=== PATIENT | male | born 1970 | race Caucasian/White ===

== ENCOUNTER 2016-09-18 02:48 | Observation (INO) | payer OTHER ==
[2016-09-18] VITALS (12 sets, daily range): BP systolic 108–138; BP diastolic 77–104; PULSE 97–114; RESP 19–26; O2SAT 95–98
[~2016-09-18] VITALS: Ht 177.8 cm; Wt 80.4 kg
[~2016-09-18 02:48] MED LIST: ASPI325T32 PO; BUPR150T12 PO; FURO40TA4 PO; HYDR-3938 PO; ISOS10TA2 PO; LORA-302 PO; METO25TA6 PO; NICO1PAT6 TD; OMEP20CA11 PO; OXYC1TAB24 PO; RIVA15TA PO; RIVA20TA PO; SERT50TA9 PO; TRIA1TAB3 PO
--- NOTE | 2016-09-18 03:13 | ED.REPORT ---
HPI-General Illness Date of Service Sep 18, 2016 ED Provider: Eris Cheek MD Patient is a 46 year old male with a history of chronic systolic heart failure, PE status post EKOS thrombolysis on Xarelto, hypertension, and polysubstance abuse who presents to the ED complaining of increased shortness of breath this evening. He is unable to clarify when exactly these symptoms began but states that he "feels like shit". Patient admits to a non-productive cough and states that his breathing is worse if he lays flat on his back. He reports associated chest pain, which is a dull pressure. He denies swelling of his legs. Patient also states that he developed diarrhea 2-3 days ago, with accompanying abdominal pain. He also admits to nausea, vomiting, and increased stomach noises. Patient states that he last used methamphetamine 2 days ago and that he is trying to quit. He admits to using marijuana daily. Patient is a difficult historian, girlfriend states this is at his baseline. Patient has a history of being noncompliant with medical care and leaving AMA. Nursing Notes Stated Complaint: DIFFICULTY BREATHING Chief Complaint: Respiratory Complaints Nursing Notes Reviewed: Yes Allergies: Coded Allergies: No Known Allergies (Verified Allergy, Unknown, 09/18/16) Scheduled Aspirin (Aspirin) 325 Mg Tablet 325 MG PO DAILY Bupropion ER (Bupropion ER) 150 Mg Tablet.er 150 MG PO BID Furosemide (Furosemide) 40 Mg Tablet 40 MG PO DAILY Hydralazine (Hydralazine) 10 Mg Tablet 10 MG PO BID Isosorbide DN (Isosorbide DN) 10 Mg Tablet 10 MG PO BID Metoprolol Tartrate (Metoprolol Tartrate) 25 Mg Tablet 25 MG PO BID Nicotine 21 mg/24 hr Patch (Nicotine 21 mg/24 hr Patch) 1 Each Patch.td24 1 PATCH TD DAILY Omeprazole (Omeprazole) 20 Mg Capsule.dr 20 MG PO DAILY Rivaroxaban (Xarelto) 15 Mg Tablet 15 MG PO BID Rivaroxaban (Xarelto) 20 Mg Tablet 20 MG PO DAILY Sertraline HCl (Sertraline) 50 Mg Tablet 50 MG PO DAILY Triamterene/HCTZ 37.5-25 mg (Triamterene/HCTZ 37.5-25 mg) 1 Each Tablet 1 TAB PO DAILY Scheduled PRN Lorazepam (Ativan) 0.5 Mg Tablet 0.5 MG PO TID PRN PRN For Anxiety oxyCODONE-Acetaminophen 5-325 mg (oxyCODONE-Acetaminophen 5-325 mg) 1 Each Tablet 1 TAB PO Q6H PRN PRN For Pain General Time Seen by MD: 03:13 Chief Complaint Breathing problem, Not feeling well Hx Obtained From: Patient Arrived By: Walk-in Sudden in Onset?: No Onset Occurred: Onset unknown Symptom Duration: Since onset Location: : Abdomen: Chest Quality: Painful, Pressure Severity: Current: Moderate Severity: Maximum: Moderate Recent Healthcare: No recent doctor visit, No recent hospitalization Similar Sx Previous: Yes Past Medical History Past Medical History Chronic systolic heart failure Hx PE w/ right heart strain, status post EKOS thrombolysis HTN GERD Anxiety Polysubstance abuse Hx leaving hospitalist service AMA suspected hx of GI bleed Past Surgical History Facial repair Hand surgery Smoking History Current Every Day Smoker Social History Alcohol Use: Denies alcohol use Drug Use: Meth, THC Other Social History: Good social support, Local resident Ambulatory Status Independent Review of Systems + not feeling well Full Review of Systems Respiratory: Reports: Non-productive cough, Shortness of breath Cardiovascular: Reports: Chest pain, Orthopnea, Denies: Edema GI: Reports: Abdominal pain, Diarrhea, Nausea, Vomiting Musculoskeletal: Denies: Extremity swelling Complete sys rev & neg: except as marked. Physical Exam Vital Signs Vital Signs Date Time Temp Pulse Resp B/P Pulse Ox O2 Delivery O2 Flow Rate FiO2 09/18/16 06:13 101 23 108/90 95 Nasal Cannula 1 09/18/16 05:23 101 23 121/89 97 Nasal Cannula 2 09/18/16 04:33 103 23 121/96 97 Nasal Cannula 2 09/18/16 03:42 101 25 116/84 98 Nasal Cannula 2 09/18/16 03:04 36.1 108 26 129/82 98 Room Air Initial VS: Reviewed Neurologic: Alert, Oriented, Nonfocal Psychiatric: Mood/affect normal, Behavior normal General/Constitutional: Awake, Alert, No acute distress Head / Eyes: Normocephalic, PERRL, No scleral icterus ENT: Airway patent, Mucous membranes moist Neck: Supple, Full range of motion, No JVD Respiratory / Chest: Breath sounds NL, Breath sounds = bilat, No respiratory distress, No rales, No rhonchi, No wheezing tachypneic Cardiovascular: Heart rate NL, Regular rhythm, Heart sounds NL, No murmurs Abdomen: Soft, Non-tender Bowel Sounds / Distention: Positive: Distention mild Upper Extremities Upper Extremity / MS: No swelling, No edema Lower Extremity / Pelvis / MS: No swelling, No edema Skin: Warm, Dry Rash / Lesion Notes: Skin changes consistent with either eczema or scabies. Patches on the contact areas of jeans and bilateral wrists. Interpretation & Diagnostics Interpretation & Diagnostics: Urine Drug Screen: Positive for methamphetamine, amphetamine, opiates, ecstasy, and marijuana. All else negative. Lab Results Interpretation Result Diagram: 09/18/16 0315 09/18/16 0315 Test 09/18/16 03:10 09/18/16 03:15 Hold Urine Received (Received) White Blood Count 8.5th/mm3 (3.8-10.1) Red Blood Count 5.81mil/mm3 (4.40-5.80) Hemoglobin 17.3g/dL (13.8-17.2) Hematocrit 51.6% (41.0-50.0) Mean Corpuscular Volume 88.8fL (81-100) Mean Corpuscular Hemoglobin 29.8pg (27.0-35.0) Mean Corpuscular Hemoglobin Concent 33.5% (32.0-37.0) Red Cell Distribution Width 13.7% (12.3-15.4) Platelet Count 193bil/L (150-400) Neutrophils (%) (Auto) 78.5% (40-74) Lymphocytes (%) (Auto) 14.0% (14-46) Monocytes (%) (Auto) 7.1% (4-12) Eosinophils (%) (Auto) 0.1% (0-5) Basophils (%) (Auto) 0.1% (0-3) Prothrombin Time 14.9sec (8.1-12.5) Prothromb Time International Ratio 1.38ratio Activated Partial Thromboplast Time 38.8sec (22.8-33.0) Sodium Level 134mEq/L (134-144) Potassium Level 4.1mEq/L (3.5-5.2) Chloride Level 95mEq/L (97-108) Carbon Dioxide Level 19mmol/L (18-29) Blood Urea Nitrogen 19mg/dL (6-24) Creatinine 1.79mg/dL (0.76-1.27) Estimat Glomerular Filtration Rate 43mL/min (>59) Glucose Level 114mg/dL (60-99) Calcium Level 8.4mg/dL (8.5-10.1) Magnesium Level 1.7mg/dL (1.6-2.6) Total Bilirubin 0.3mg/dL (0.0-1.2) Aspartate Amino Transf (AST/SGOT) 41U/L (0-50) Alanine Aminotransferase (ALT/SGPT) 29U/L (0-44) Alkaline Phosphatase 142U/L (25-150) Troponin T 0.010ug/L (0.0-0.011) Pro-B-Type Natriuretic Peptide 5624pg/mL (0-121) Total Protein 7.5g/dL (6.4-8.4) Albumin 3.9g/dL (3.4-5.0) Hold Ca Top Tube Received (Received) ECG Interpretation ECG Interpretation: Sinus tachycardia, Rate 102 Biatrial enlargement RBBB and LPFB Time: 03:25 Interpreted by: ED physician Normal ECG Interpretation: No change from prior ECGs (03/31/2016) X-Ray Chest Interpretation Chest Xray Interpretation: Impression: No acute cardiopulmonary process. View: AP & lat Interpretation / Wet Read by: Wet read ED physician CT Chest Interpretation Impression: No evidence for PE. Radiologist: Rishi Johnson MD 09/18/2016 - 5:44:47 AM PDT Study type: CT pulm angiogram Interpretation / Wet Read by: Interpret - Radiologist Re-Eval/Medical Decision Med Decision/Clinical Course 46-year-old with a history of pulmonary emboli requiring catheter treatment, chronic heart failure, chronic methamphetamine abuse, and chronic medical noncompliance, presents with shortness of breath orthopnea decreasing exercise capacity, and vague chest pain. EKG is abnormal but is stable and configuration compared to previous. There is some chronic fixed elevation in aVR suggesting the possibility of posterior wall HI, but this is identical to his previous EKG, and troponin is negative. His BNP is elevated at 5000. Given his shortness of breath tachycardia and history of large skilled pulmonary emboli. A CT angiogram was obtained and does not show evidence of pulmonary embolus. He is admitted now for completion of rule out protocol, echocardiography, and is transported now in stable condition. Admission problems #1 CHF #2 rule out ischemia #3 methamphetamine abuse #4 history of pulmonary emboli current emboli excluded #5 inadequate anticoagulation #6 eczematous skin rash and contact points with jewelry and belt. Probable metal allergy. Rule out scabies. Source of Hx: Old records Time of Eval: 04:57 Re-Evaluation/Progress Note: Patient is now sleeping in the ED comfortably. Time of Eval: 05:50 Patient Status: Condition improved Re-Evaluation/Progress Note: Rechecked the patient. Discussed the results of his CT scan, chest x-ray, and labs. It does appear that he is having a CHF exacerbation. Patient is very drowsy and keeps falling asleep during the conversation. Hospital admission was advised. Patient asks "how long" but does not disagree with the idea. Consultation : Referral / Consult Name: Jas Haines MD Consulted With: Hospitalist Call Returned at: 05:59 Sorting Livestock Worker: Will see patient, Agrees with eval, Agrees with plan, Accepts admit Note: Spoke with Dr. Haines, hospitalist, who agrees to accept admit. Counseled Regarding: Diagnosis, Lab results, Need for admission Discharge & Departure Primary Impression: CHF exacerbation Congestive heart failure type: systolic Qualified Code: I50.23 - Acute on chronic systolic (congestive) heart failure Additional Impressions: Polysubstance abuse Methamphetamine abuse Disposition: ADMITTED TO HOSPITAL Discharge Condition All VS Reviewed: Yes Condition: Stable Referrals: FRANCHESCA SNEED (PCP) Rick Attestation Portions of this note were transcribed by Amy Smith. I, Dr. Cheek personally performed the history, physical exam and medical decision-making; I reviewed and confirmed the accuracy of the information in the transcribed note. Signed by: Rick Rojas, 09/18/2016 0600 copies to: FRANCHESCA SNEED Christopher W MD Sep 18, 2016 03:13 Amy Smith Sep 18, 2016 03:19
[2016-09-18 03:24] LABS: BASOPHILS % (AUTO) 0.1 % (0-3); EOSINOPHILS % (AUTO) 0.1 % (0-5); MONOCYTES % (AUTO) 7.1 % (4-12); Mean Corpuscular Hemoglobin 29.8 pg (27.0-35.0); Mean Corpuscular Volume 88.8 fL (81-100); NEUTROPHILS % (AUTO) 78.5 % (40-74); Platelet Count 193 bil/L (150-400)
[2016-09-18 03:54] LABS: TROPONIN T 0.01 ug/L (0.0-0.011)
[2016-09-18 03:59] LABS: INR 1.38 ratio
[2016-09-18 04:06] LABS: Magnesium 1.7 mg/dL (1.6-2.6)
[2016-09-18] MEDS ORDERED: Furosemide 10 mg/mL 4 mL Inj IVPUSH ONE (06:40)
--- NOTE | 2016-09-18 07:22 | NUR ---
[place] [facility] [place] [id number], able to respond to questions, however is argumentive. When asked to slide self from gurney to bed, pt sts "Why dont you just fucking throw me around the way you have been. Nobody deserves to be treated like this". Pt continues to respond to the staff in appropriately when questioned by staff. Family/friends at bedside, able to assist the pt from gurney to bed with considerable effort.
--- NOTE | 2016-09-18 08:37 | DRSVH ---
PROCEDURE: CT ANGIO CHEST PULMONARY EMBOLISM ([id number]) INDICATIONS: sob, tachycardia, prior emboli TECHNIQUE: After the administration of intravenous contrast, 2 mm thick sections acquired from the pulmonary api laura to the posterior costophrenic angles. 3-dimensional maximum intensity projection (MIP) coronal a nd sagittal reformats were then acquired through the thorax. For radiation dose reduction, the follo wing was used: automated exposure control, adjustment of mA and/or kV according to patient size. COMPARISON: [facility], CT, CT CHEST WO CON, 03/26/2016, 12:58. [facility], CR, XR CHEST 2VW, 09/18/2016, 3:29. FINDINGS: Image quality: Excellent. Pulmonary arteries: Pulmonary arteries are normal in size, and demonstrate no intraluminal filling d efects to suggest central pulmonary embolism. Lungs and pleura: Lungs are clear. No pleural effusions or pneumothorax. Central and peripheral ai rways are patent. Mediastinum: Heart size is normal, without pericardial effusion. No mediastinal or hilar adenopathy . Thoracic aorta is normal in caliber and enhancement. Esophagus is normal in caliber, without hiat al hernia. Bones and chest wall: No suspicious bony lesions. Ribs and thoracic spine appear intact throughout. Thyroid gland is not well-visualized. No axillary or supraclavicular adenopathy. Abdomen: Visualized upper abdominal solid organs appear normal in the early arterial phase of enhanc ement. IMPRESSION: No source of current symptoms is found, no pulmonary embolus is seen. Note: These findings are concordant with the preliminary interpretation. Dictated by: Ryan Maloney M.D. on 09/18/2016 at 8:34 Approved by: Ryan Maloney M.D. on 09/18/2016 at 8:36
--- NOTE | 2016-09-18 10:19 | DRSVH ---
PROCEDURE: X-RAY CHEST, TWO VIEWS ([id number]) INDICATIONS: SOB, CP TECHNIQUE: 2 views of the chest were acquired. COMPARISON: [facility], CT, CT ANGIO CHEST PE, 09/18/2016, 5:17. [facility], CT, CT CHEST WO CON, 03/26/2016, 12:58. [facility], CR, XR CHEST 1VW, 03/31/2016, 22:46 . [facility], CR, XR CHEST 2VW, 03/26/2016, 13:08. FINDINGS: Surgical changes and devices: None. Lungs and pleura: No pleural effusions or pneumothorax. Lungs are clear. Mediastinum: Mediastinal contours are normal. Heart size is normal. Bones and chest wall: No suspicious bony abnormalities. Soft tissues appear unremarkable. IMPRESSION: Source of chest pain and shortness of breath is not found. Dictated by: Ryan Maloney M.D. on 09/18/2016 at 10:15 Approved by: Ryan Maloney M.D. on 09/18/2016 at 10:17
--- NOTE | 2016-09-18 10:34 | PCM.HPMED ---
Subjective Date of Service Sep 18, 2016 Primary Provider: Admitting Physician: Jas Haines MD Primary Care Physician: Nopdonavan Attending Physician: Jas Haines MD Chief Complaint: Difficulty breathing History of Present Illness: 46 year old male with a history of chronic systolic heart failure, PE status post EKOS thrombolysis on Xarelto, hypertension, and polysubstance abuse p/w SOB patient was somnolent, unable to get history. as per ED provider, pt didn't know the onset of sx, had non-productive cough, breathing worse with laying down on his back, also had dull chest pressure, diarrhea 2-3days ago and nausea , vomiting. pt admitted using methamphetamine 2days ago. in ED VS BP stable, tachycardic [id number], [id number], 97% on RA, afebrile, CXR showed no acute findings, CTA chest showed no PE, no effusions, consolidation. pt received [id number], [id number], [id number] iv in ED. admitted with impression of probable CHF Review of Systems: Pertinent positives as noted in history of present illness. All other systems were reviewed and are negative Allergies Coded Allergies: No Known Allergies (Verified Allergy, Unknown, 09/18/16) Home Medications Unable to verify any medicine PMH PAST MEDICAL HISTORY: polysubstance abuse. anxiety, GERD, congestive heart failure, medication noncompliance. PE last , s/p EKOS, discharged with Xarelto, unclear compliance PSH history of facial repair, history of hand surgery, history of FAMILY MEDICAL HISTORY: Brother of leukemia. SOCIAL HISTORY: Alcohol denies. Smoking cigarettes daily. Social History Hx Alcohol Use: Yes (Not current use) Hx Substance Use: Yes (Meth and THC) Hx Tobacco Use: Yes Smoking Status: Current Every Day Smoker Exam Vital Signs Vital Sign - Last Date Time Temp Pulse Resp B/P Pulse Ox O2 Delivery O2 Flow Rate FiO2 09/18/16 06:35 102 23 123/93 97 Nasal Cannula 1 09/18/16 03:04 36.1 Exam Very somnolent, intermittently verbally abusive to staff no JVD, MMM, no LAD, pinpoint pupils bilaterally RRR, nl s1, s2 no mrg CTAB, no w,c S,ND,NT,normoactive BS+ warm, no edema, pulses 2/2 Lab and Diagnostics Result Diagram: 09/18/1631409/18/16314 Assessment & Plan 46 year old male with a history of chronic systolic heart failure, PE status post EKOS thrombolysis on Xarelto, hypertension, and polysubstance abuse p/w SOB acute, active dyspnea, POA, reported PND, likely due to possible CHF exacerbation, PE ruled out. labs were unremarkable for PNA. -O2 supplement target>95% -repeat TTE -s/p [id number] iv in ED, would continue for now -viral PCR polysubstance abuse, POA, currently seems in opioid intoxication, -will monitor MS, consider narcan -appreciate SW input chronic,s table anxiety, will assess later, resume home meds GERD, will resume home meds after med rec PE last , s/p EKOS, discharged with Xarelto, unclear compliance, will continue Xarelto dispo:Patient will be admitted with inpatient status with expectation of inpatient therapy for more than 2 midnights diet:cardiac dvt ppx:systemic AC Full Code Time spent 35min Madelin Bland MD Sep 18, 2016 07:28
--- NOTE | 2016-09-18 11:32 | NUR ---
Social Work: Screening Data: Pt is a 46 y/o male admitted for CHF/SOB/anxiety/meth use. Pt's PCP is not listed, pt's insurance is [employer]. EMR reviewed. Pt has hx of meth use. EXPLORATION MANAGER informed in rounds by MD and RN that pt is currently not appropriate for assessment due to somnolence. EXPLORATION MANAGER will complete CD assessment when appropriate. EXPLORATION MANAGER will continue to follow for possible d/c needs. Assessment: Pt who is independent at baseline, meth use. Plan: Pt will likely d/c home when medically stable. EXPLORATION MANAGER will complete CD assessment when appropriate. EXPLORATION MANAGER will continue to follow for possible d/c needs. WILLA Ladd
[2016-09-18 11:52] LABS: APPEARANCE,URINE HAZY (CLEAR,HAZY); COLOR,URINE YELLOW (YELLOW); OCCULT BLOOD,URINE NEGATIVE (NEGATIVE); PH,URINE 5.5 (5.0-8.0); UROBILINOGEN,URINE NORMAL (NORMAL)
--- NOTE | 2016-09-18 17:40 | NUR ---
Nausea Pt sts "feels like shit", this RN inquired what greatest concern was. Pt reports feels sick to his stomach, 8 mg of IV zofran given. Pt declined offer of clear soda, ice pack or position change. Pt advised will make on coming RN aware of pt concerns. Frequent rounding in place, will continue to monitor.
[2016-09-18] MEDS: Ondansetron 2 mg/mL 2 mL Inj IVPUSH PRN (18:51)
[2016-09-18] MEDS: buPROPion SR 150 mg ER12 Tablet PO SCH (20:05)
[2016-09-18] MEDS: Alum-Mag Hydrox-Simeth 30 mL Suspension PO PRN (21:57)
[2016-09-19] VITALS (7 sets, daily range): BP systolic 94–112; BP diastolic 65–79; PULSE 73–108; RESP 18–22; O2SAT 94–98
[2016-09-19] MEDS: Ondansetron 2 mg/mL 2 mL Inj IVPUSH PRN ×3 (01:08→17:43)
[2016-09-19 05:22] LABS: BASOPHILS % (AUTO) 0.3 % (0-3); EOSINOPHILS % (AUTO) 0.5 % (0-5); Mean Corpuscular Hemoglobin 29.6 pg (27.0-35.0); Mean Corpuscular Volume 88.2 fL (81-100); NEUTROPHILS % (AUTO) 61.9 % (40-74); Platelet Count 156 bil/L (150-400)
[2016-09-19 05:46] LABS: Magnesium 2.1 mg/dL (1.6-2.6); Phosphorus 3.5 mg/dL (2.5-4.9)
--- NOTE | 2016-09-19 06:18 | NUR ---
Behavior Patient yelling screaming out help at midnight. Staff in to check on patient. patient reports he has been screaming for 40 minutes and no one has helped him. Patients girlfriend at bedside sleeping. reinforced to patient that I just medicated him with maalox less than 30 minutes ago and he has not been yelling out for that long. Asked patient what I can do to help him and he states "I don't know" patient continued to yell at me and states "this is ridiculous it took you that long to answer" Charge nurse and hot strip mill supervisor in to talk to patient. Patient informed that his yelling out is disturbing other patients his call light was right next to him and he should use his call light for help. asked patient again "what can we do for you" patient continues to state "I don't know" vitals stable. Patient insisted on sitting out in hallway drinking juice and crackers. Girlfriend left for a smoke and came back patient in bed more sleepy unable to open eyes. speech slurred. BP decreased to 96 systolic from 140's. Patient had second visitor come at 0100 sleeping in chair in room. patient reported nausea. medicated with 4mg zofran IV. will continue to monitor.
[2016-09-19] MEDS: buPROPion SR 150 mg ER12 Tablet PO SCH ×2 (09:17→22:41)
--- NOTE | 2016-09-19 10:25 | NUR ---
Nausea/diarrhea Pt complains of nausea, reports is having diarrhea at appro 1000. This RN offered Rx for nausea relief, pt accepted. 8 mg of IV zofran given as ordered. Pt is resting quietly, appears to be sleeping, RRR. No signs of nausea at this time. Will continue to monitor.
[2016-09-19] MEDS ORDERED: oxyCODONE-Acetamin 5-325 mg Tablet PO PRN (10:40)
[2016-09-19] MEDS ORDERED: LORazepam 0.5 mg Tablet PO PRN (10:40)
--- NOTE | 2016-09-19 10:46 | PCM.PNMED ---
Subjective Date of Service Sep 19, 2016 Subjective pt was verbally abuse towards staffs, threatened multiple times. pt didn't remember details of episode yesterday, patient was seen with hospital police at the bedside pt admitted that he has had some severe chills recently, had watery diarrhea for four days, he easily got shortness of breath with minimal exertion at home with daily activities. pt was only on 3medicines, blood thinner and blood pressure, but no another pill. used take 6pills a day, was compliant before denied bloody, black stools. denied PND, orthopnea. chest pain, Exam Vital Signs Vital Sign - Last Date Time Temp Pulse Resp B/P Pulse Ox O2 Delivery O2 Flow Rate FiO2 09/19/16 09:44 35.9 81 22 109/79 96 Room Air 09/18/16 06:35 1 Intake and Output 09/18/16 09/18/16 09/19/16 Cumulative From/Thru 15:00 23:00 07:00 09/18/16 03:04 - 09/19/16 06:48 Intake Total 550 ml 420 ml 970 ml Balance 550 ml 420 ml 970 ml Intake Oral 550 ml 400 ml 950 ml IV Total 20 ml 20 ml # Voids 2 3 5 Exam poorly groomed middle aged male, intermittently anxious and agitated , aggressive no JVD, MMM, no LAD RRR, nl s1, s2 no mrg mild crackles throughout, S,ND,NT,normoactive BS+ warm, trace edema, pulses 2/2 IVs and Medications Medications Reviewed: Medications were reviewed in detail Lab and Diagnostics Result Diagram: 09/19/16 0455 09/19/16 0455 Assessment & Plan 46 year old male with a history of chronic systolic heart failure, PE status post EKOS thrombolysis on Xarelto, hypertension, and polysubstance abuse p/w SOB acute, active dyspnea, POA, hx was more suggestiev of CHF exacerbation, rather than respiratory infection. PE ruled out. labs were unremarkable for PNA. resp PCR neg. -O2 supplement target>95% -repeat TTE today -s/p [id number] iv in ED, will continue 40mg iv bid, i/o, daily wt polysubstance abuse, POA, utox positive for amphetamine, marihuana, no opioid -appreciate SW input aggressive behaviors, POA, pt was able to convince, seemed more reasonable today , unlikely acutely intoxicated now. likely from baseline personality disorder, -monitor for drug use in house, will use hospital police as needed. chronic,s table anxiety, will assess later, resume home meds GERD, will resume home meds after med rec PE last , s/p EKOS, discharged with Xarelto, unclear compliance, will continue Xarelto HTN, will resume home med dispo:2-3more days with diuresis, very high risks of AMA diet:cardiac dvt ppx:systemic AC Full Code Time spent 35min Madelin Bland MD Sep 19, 2016 10:46
[2016-09-19] MEDS: Furosemide 10 mg/mL 4 mL Inj IVPUSH SCH ×2 (11:59→22:40)
--- NOTE | 2016-09-19 12:29 | DRSVH ---
[facility] [address] [place] [address] Echocardiogram Report Name: ANISA BENSON HStudy Date: 09/19/2016 Height: 70 in Hospital Exam Location: [facility] Weight: 195 lb Gender: Male BSA: 2.1 m2 : 1970 Age: 46 yrs BP: 123/93 mmHg Reason For Study: SOB Ordering Physician: Performed By: [facility] Interpretation Summary Left ventricular wall thickness is mildly increased. The ejection fraction is estimated to be 50-55%. LVEF has not changed significantly since prior study. The right ventricle is severely dilated. Right ventricular systolic function is severely reduced. Flattened septum is consistent with RV pressure/volume overload. Findings are chronic in comparison with prior echo study on 03/26/2016. The right ventricular systolic pressure is estimated at 55 mmHg assuming a right atrial pressure of 8 mm Hg. Compared to the prior echo exam, there has been no change in the severity of pulmonary hypertension. The left atrial size is normal. The right atrium is severely dilated. There is mild to moderate tricuspid regurgitation. There is mild to moderate pulmonic regurgitation. The aortic root is normal size. Procedure: A two-dimensional transthoracic echocardiogram with color flow and Doppler was performed. The study quality was technically good. Comparison is made with the echocardiogram of 03-26-16. The patient was in normal sinus rhythm during the exam. Left Ventricle: The left ventricle is normal in size. Left ventricular wall thickness is mildly increased. The ejection fraction is estimated to be 50- 55%. Flattened septum is consistent with RV pressure/volume overload. Right Ventricle: The right ventricle is severely dilated. Right ventricular systolic function is severely reduced. Atria: The left atrial size is normal. The right atrium is severely dilated. The interatrial septum is intact with no evidence for an atrial septal defect. Mitral Valve: The mitral valve is grossly normal. There is trace mitral regurgitation. Aortic Valve: The aortic valve opens well. No aortic regurgitation is present. Tricuspid Valve: The tricuspid valve leaflets are thin and pliable. There is mild to moderate tricuspid regurgitation. The right ventricular systolic pressure is estimated at 55 mmHg assuming a right atrial pressure of 8 mm Hg. Compared to the prior echo exam, there has been no change in the severity of pulmonary hypertension. Pulmonic Valve: The pulmonic valve leaflets are thin and pliable; valve motion is normal. There is mild to moderate pulmonic regurgitation. Great Vessels: The aortic root is normal size. The dimensions of the ascending aorta are normal. The IVC is of normal diameter and collapses less than 50% with a sniff. This suggests a right atrial pressure of 8 mm Hg. Pericardium/ Pleura There is no pericardial effusion. There is no pleural effusion. MMode/2D Measurements & Calculations LVIDd: 3.8 cm LA dimension: 3.1 cm RA long axis Ao root diam LVIDs: 2.6 cm IVC diam: 1.7 cm FS: 32.8 % RA area Aortic Jxn IVSd: 1.2 cm LVPWd: 1.3 cm : 30.9 cm asc Aorta RA vol Diam: 3.3 cm : 125.ml RA : 61.0 mm/ RVDd major : 7.3 cm LV sapp. diameter/BSA LV sys. diameter/BSA RVD1 (basal) RVD2 (mid) (cm/m^2): 1.9 (cm/m^2): 1.2 : 5.5 cm Doppler Measurements & Calculations Ao V2 max MV E max clayton MV E/A: 0.73 TR max clayton : 87.3 cm/sec : 32.7 cm/sec Med Peak E' Clayton : 344.1 cm/sec Ao max PG MV A max clayton TR max PG : 3.1 mmHg : 44.8 cm/sec E/E' med: 10.5 : 47.4 mmHg Ao mean PG Lat Peak E' Clayton PA V2 max : 1.5 mmHg : 54.5 cm/sec E/E' lat: 5.9 PA mean PG E/e' average: 8.2 : 0.60 mmHg PA Accel Time : 0.06 sec MV dec time Ao V2 mean PA V2 mean : 0.33 sec : 56.6 cm/sec : 38.0 cm/sec Ao V2 VTI: 13.1 cm Reading Physician:PM
--- NOTE | 2016-09-19 16:56 | NUR ---
Social Work: CD Assessment Attempt Field Service Technician attempted to meet with patient and complete CD assessment, but patient was asleep. SW will attempt to complete assessment when patient is available. Bella Langley LMSW, ACM
--- NOTE | 2016-09-19 18:24 | NUR ---
Nausea/PO intake Pt reports nausea continues, 4 mg IV Zofran administered. Pt encouraged to try to eat, sts "I have not been able to eat for 3 days". This RN offered to order dinner for pt. Pt is somewhat reluctant however did place order for meal. This RN, again, encouraged pt to try and eat. Pt reports will try. Call light in place, will continue to monitor.
[2016-09-20] VITALS (9 sets, daily range): BP systolic 83–112; BP diastolic 59–82; PULSE 76–90; RESP 18–20; O2SAT 93–97
[2016-09-20] MEDS: Alum-Mag Hydrox-Simeth 30 mL Suspension PO PRN (01:38)
--- NOTE | 2016-09-20 05:07 | NUR ---
BP, Meds/PO: Pt was able to take a few bites of a hamburger at dinner, states that is the most he has been able to eat in days. States feeling weak and tired, with shortness of breath doing ADLs. Encouraged pt to sit up in the chair during meals today, pt nodded. BP was low at bedtime, 94/69 HR 76, held Metoprolol; MD aware. BP did increase with last assessment to 107/76 with HR 82. Pt has been cooperative with care, RN sat at pt's bedside during medication administration and pt engaged in conversation about family and home life. States having difficulty with medication due to "memory problems", his girlfriend helps with medication. Pt was having difficulty sleeping due to the bed motor, per pt request, bed unplugged from wall for the night. Pt aware of how to use call light for needs. Addendum: 09/20/16 at 0652 by ARLENE SHAW RN Slept on pull out sofa in room.
[2016-09-20 06:39] LABS: BASOPHILS % (AUTO) 0.3 % (0-3); MONOCYTES % (AUTO) 16.7 % (4-12); Mean Corpuscular Hemoglobin 29.4 pg (27.0-35.0); Mean Corpuscular Volume 86.8 fL (81-100); NEUTROPHILS % (AUTO) 61.8 % (40-74); Platelet Count 169 bil/L (150-400)
--- NOTE | 2016-09-20 06:51 | NUR ---
AM meds: Pt did not sleep much of the night, is currently sleeping. 0630 Protonix not given at this time, will pass in report.
[2016-09-20 06:56] LABS: Magnesium 2.3 mg/dL (1.6-2.6); Phosphorus 3.7 mg/dL (2.5-4.9)
[2016-09-20] MEDS: Furosemide 10 mg/mL 4 mL Inj IVPUSH SCH ×2 (08:30→21:49)
[2016-09-20] MEDS: Ondansetron 2 mg/mL 2 mL Inj IVPUSH PRN (08:33)
[2016-09-20] MEDS: buPROPion SR 150 mg ER12 Tablet PO SCH ×2 (08:33→21:51)
[2016-09-20] MEDS: Pantoprazole 20 mg ER24 Tablet PO SCH (08:33)
--- NOTE | 2016-09-20 08:50 | NUR ---
Nausea/behavior At appro 0815, pt found lying on the floor, reports this is where feels most comfortable, sts "I feel like shit, ". This RN inquired, what can be done to help. Pt reports is feeling very nauseated and really anxious. This RN offered anti nausea and anxiety medication. Pt accepted. Pt assisted to pull out couch in room. Ice pack applied to back of neck, 8 mg of IV Zofran given, PO Ativan administered. Reassessment of pt, up in chair trying to eat meal, reports is feeling a little better. Call light with in reach, will continue to monitor.
--- NOTE | 2016-09-20 22:24 | PCM.PNMED ---
Subjective Date of Service Sep 20, 2016 Subjective The patient is now realizing that his symptoms of nausea and diarrhea and abdominal cramping may be due to withdrawal symptoms, as he states that he has never not been taking drugs since he was a teenager. Exam Vital Signs Vital Sign - Last Date Time Temp Pulse Resp B/P Pulse Ox O2 Delivery O2 Flow Rate FiO2 09/20/16 20:55 36.4 78 20 105/75 97 Room Air 09/18/16 06:35 1 Intake and Output 09/19/16 09/19/16 09/20/16 Cumulative From/Thru 15:00 23:00 07:00 09/18/16 03:04 - 09/20/16 06:39 Intake Total 600 ml 650 ml 2220 ml Output Total 525 ml 525 ml Balance 600 ml 125 ml 1695 ml Intake Oral 600 ml 650 ml 2200 ml IV Total 20 ml Output Urine Total 525 ml 525 ml # Voids 3 8 # Bowel Movements 2 0 2 Exam General: Patient is calm and relaxed laying on the pullout couch rather than his bed. He is in no apparent distress. HEENT: Head is atraumatic and normocephalic. Eyes: Pupils are equally round and reactive to light and accommodation. Extraocular muscles are intact. Sclera are white, anicteric. Subconjunctival mucosa is pink. Ears and nose are unremarkable. Oropharynx: There is no mucosal lesions, there is no thrush, there is no pharyngitis. Neck: Is supple, there are no nodes, or masses or tenderness. Chest: Is clear to auscultation and percussion. There are no rales, rhonchi, wheezes or rubs. Heart: Rate, rhythm is regular. There is no murmur, rub or gallop. Abdomen: Good bowel sounds are present. Abdomen is soft, nontender, no organomegaly or masses were appreciated. Extremities: Are symmetrical and well perfused. There is no edema, there is no cellulitis, no rash. Neurologic: There are no focal neurological deficits. Cranial nerves II through XII are intact. There are no sensory or motor deficits. Psychiatric: Patients mood is calm and he shows no sign of agitation. Genital: Deferred Rectal: Deferred Lab and Diagnostics Result Diagram: 09/20/16 0550 09/20/16 0550 Microbiology Mario Alberto virus PCR test was negative MRSA screen was negative Cardiac Echo Impressions Echocardiogram Report Name: ANISA BENSON HStudy Date: 09/19/2016 Height: 70 in Hospital Exam Location: [facility] Weight: 195 lb Gender: Male BSA: 2.1 m2 : 1970 Age: 46 yrs BP: 123/93 mmHg Reason For Study: SOB Ordering Physician: Performed By: [facility] Interpretation Summary Left ventricular wall thickness is mildly increased. The ejection fraction is estimated to be 50-55%. LVEF has not changed significantly since prior study. The right ventricle is severely dilated. Right ventricular systolic function is severely reduced. Flattened septum is consistent with RV pressure/volume overload. Findings are chronic in comparison with prior echo study on 03/26/2016. The right ventricular systolic pressure is estimated at 55 mmHg assuming a right atrial pressure of 8 mm Hg. Compared to the prior echo exam, there has been no change in the severity of pulmonary hypertension. The left atrial size is normal. The right atrium is severely dilated. There is mild to moderate tricuspid regurgitation. There is mild to moderate pulmonic regurgitation. The aortic root is normal size. Assessment & Plan Patient is a 46 year old male with a history of chronic systolic heart failure, with history of PE status post EKOS thrombolysis on Xarelto, hypertension, and polysubstance abuse who presented to [facility] emergency room with SOB # Dyspnea, present at the time of admission, secondary to acute on chronic CHF exacerbation, rather than respiratory infection. PE ruled out. labs were unremarkable for PNA. resp PCR neg. -Continue O2 supplement target>95% -We have repeated TTE today -We will continue Lasix 40 mg IV twice a day # Polysubstance abuse, present at the time of admission, utox positive for amphetamine, marihuana, no opioid -We appreciate social science instructor input - Patient appears to be going through some withdrawal. Continue with Ativan and Zofran when necessary. Patient appears motivated to quit doing drugs as he just lost his twin brother and has lost his parents. # Recent aggressive behaviors, resident of the time admission, patient is much more calm and there is no agitation today. Previous outbursts are likely from baseline personality disorder, -We will continue monitor for drug use in house as needed - However, patient appears to be motivated to quit doing drugs. # Anxiety, present at the time of admission, improved with Ativan # GERD, -will continue Protonix. # PE last , s/p EKOS, discharged with Xarelto - unclear compliance - we will continue Xarelto # HTN - We will continue Isordil - We will continue metoprolol - Continue Cardiac diet Disposition: Patient will likely require 2-3more days with diuresis, very high risks of AMA Pain Evaluation: Adequate Pain Control GI Prophylaxis: Proton Pump Inhibitor VTE Prophylaxis: Other (The patient is on Xarelto) Resuscitation Status: CPR: Attempt Resuscitation Eris Hewitt MD Sep 20, 2016 22:24
[2016-09-21 01:46] VITALS: BP 116/82; PULSE 66; RESP 20; O2SAT 97
--- NOTE | 2016-09-21 02:46 | NUR ---
Behavior: Pt has been sleeping on the pull out couch the entire shift thus far. Yessica pt did not participate in conversation with staff, as he had the night before. When asked earlier how his day went, his response was "Do you really care". Pt has denied nausea, stated "If I don't have nausea, I'm leaving this place. This place sucks". Is cooperative and allowing care, stool PCR was sent to the lab.
--- NOTE | 2016-09-21 05:21 | NUR ---
NOC note: No nausea, did eat most of dinner last night, and orange this morning. Protonix administered, c/o heartburn. Awake and conversant this morning.
[2016-09-21] MEDS: Pantoprazole 20 mg ER24 Tablet PO SCH (05:29)
[2016-09-21 05:47] VITALS: BP 110/79; PULSE 66; RESP 18; O2SAT 98
[2016-09-21 09:33] VITALS: BP 108/91; PULSE 80; RESP 18; O2SAT 100
[2016-09-21 09:42] LABS: BASOPHILS % (AUTO) 1.5 % (0-3); EOSINOPHILS % (AUTO) 1.6 % (0-5); MONOCYTES % (AUTO) 18.8 % (4-12); Mean Corpuscular Hemoglobin 29.4 pg (27.0-35.0); Mean Corpuscular Volume 86.2 fL (81-100); NEUTROPHILS % (AUTO) 48.7 % (40-74); Platelet Count 178 bil/L (150-400)
[2016-09-21 10:03] VITALS: PULSE 69
[2016-09-21 10:17] LABS: Phosphorus 4.8 mg/dL (2.5-4.9)
[2016-09-21] MEDS: buPROPion SR 150 mg ER12 Tablet PO SCH (10:30)
[2016-09-21] MEDS: Furosemide 10 mg/mL 4 mL Inj IVPUSH SCH (10:31)
--- NOTE | 2016-09-21 14:13 | PCM.DIMED ---
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
--- NOTE | 2016-09-21 14:52 | NUR ---
Discharge Pt discharged to home at 1440 in stable condition accompanied by two friends who are driving. All belongings with pt. Tele and IV dc'd prior to discharge. Pt. was very agitated this morning, yelling and swearing because of certain visitors that had come that he was frustrated with. Became agitated and yelling at staff as well. He was able to calm down until his discharge was ready. All instructions with pt. No questions or concerns at this time.
--- NOTE | 2016-09-21 15:05 | NUR ---
SW - Discharge Data: Pt is on day 3 of hospitalization for CHF/SOB/Anxiety/methamphetamine. Per charge nurse pt has been agitated today and wants to leave. Per nursing note pt is medically stable and MD is discharging pt home today via friends in POV. No further needs assessed. Assessment: Pt who is independent at baseline Plan: Pt to discharge home via POV. No further needs assessed. WILLA Gallo
--- NOTE | 2016-09-21 23:40 | PCM.DC.MED ---
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 3-dimensional maximum intensity projection (MIP) coronal and sagittal reformats were then acquired through the thorax. For radiation dose reduction, the following was used: automated exposure control, adjustment of mA and/or kV according to patient size. COMPARISON: [facility], CT, CT CHEST WO CON, 03/26/2016, 12:58. [facility], CR, XR CHEST 2VW, 09/18/2016, 3:29. FINDINGS: Image quality: Excellent. Pulmonary arteries: Pulmonary arteries are normal in size, and demonstrate no intraluminal filling defects to suggest central pulmonary embolism. Lungs and pleura: Lungs are clear. No pleural effusions or pneumothorax. Central and peripheral airways are patent. Mediastinum: Heart size is normal, without pericardial effusion. No mediastinal or hilar adenopathy. Thoracic aorta is normal in caliber and enhancement. Esophagus is normal in caliber, without hiatal hernia. Bones and chest wall: No suspicious bony lesions. Ribs and thoracic spine appear intact throughout. Thyroid gland is not well-visualized. No axillary or supraclavicular adenopathy. Abdomen: Visualized upper abdominal solid organs appear normal in the early arterial phase of enhancement. IMPRESSION: No source of current symptoms is found, no pulmonary embolus is seen. Note: These findings are concordant with the preliminary interpretation. Dictated by: Ryan Maloney M.D. on 09/18/2016 at 8:34 Approved by: Ryan Maloney M.D. on 09/18/2016 at 8:36 PROCEDURE: X-RAY CHEST, TWO VIEWS ([id number]) INDICATIONS: SOB, CP TECHNIQUE: 2 views of the chest were acquired. COMPARISON: [facility], CT, CT ANGIO CHEST PE, 09/18/2016, 5:17. [facility], CT, CT CHEST WO CON, 03/26/2016, 12:58. [facility], CR, XR CHEST 1VW, 03/31/2016, 22:46. [facility], CR, XR CHEST 2VW, 03/26/2016, 13:08. FINDINGS: Surgical changes and devices: None. Lungs and pleura: No pleural effusions or pneumothorax. Lungs are clear. Mediastinum: Mediastinal contours are normal. Heart size is normal. Bones and chest wall: No suspicious bony abnormalities. Soft tissues appear unremarkable. IMPRESSION: Source of chest pain and shortness of breath is not found. Dictated by: Ryan Maloney M.D. on 09/18/2016 at 10:15 Approved by: Ryan Maloney M.D. on 09/18/2016 at 10:17 Cardiac Echo Impression Echocardiogram Report Name: ANISA BENSON HStudy Date: 09/19/2016 Height: 70 in Hospital Exam Location: [facility] Weight: 195 lb Gender: Male BSA: 2.1 m2 : 1970 Age: 46 yrs BP: 123/93 mmHg Reason For Study: SOB Ordering Physician: Performed By: Gricelda Foote HOSPITALIST [facility] Interpretation Summary Left ventricular wall thickness is mildly increased. The ejection fraction is estimated to be 50-55%. LVEF has not changed significantly since prior study. The right ventricle is severely dilated. Right ventricular systolic function is severely reduced. Flattened septum is consistent with RV pressure/volume overload. Findings are chronic in comparison with prior echo study on 03/26/2016. The right ventricular systolic pressure is estimated at 55 mmHg assuming a right atrial pressure of 8 mm Hg. Compared to the prior echo exam, there has been no change in the severity of pulmonary hypertension. The left atrial size is normal. The right atrium is severely dilated. There is mild to moderate tricuspid regurgitation. There is mild to moderate pulmonic regurgitation. The aortic root is normal size. Brief History 46 year old male with a history of chronic systolic heart failure, PE status post EKOS thrombolysis on Xarelto, hypertension, and polysubstance abuse p/w SOB patient was somnolent, unable to get history. as per ED provider, pt didn't know the onset of sx, had non-productive cough, breathing worse with laying down on his back, also had dull chest pressure, diarrhea 2-3days ago and nausea , vomiting. pt admitted using methamphetamine 2days ago. in ED VS BP stable, tachycardic [id number], [id number], 97% on RA, afebrile, CXR showed no acute findings, CTA chest showed no PE, no effusions, consolidation. pt received [id number], [id number], [id number] iv in ED. admitted with impression of probable CHF Hospital Course Patient is a 46 year old male with a history of chronic systolic heart failure, with history of PE status post EKOS thrombolysis on Xarelto, hypertension, and polysubstance abuse who presented to [facility] emergency room with SOB # Dyspnea, present at the time of admission, secondary to acute on chronic CHF exacerbation, rather than respiratory infection. PE ruled out. labs were unremarkable for PNA. resp PCR neg. -Continue O2 supplement target>95% -We have repeated TTE today -We will continue Lasix 40 mg IV twice a day # Polysubstance abuse, present at the time of admission, utox positive for amphetamine, marihuana, no opioid -We appreciate social media executive input - Patient appears to be going through some withdrawal. Continue with Ativan and Zofran when necessary. Patient appears motivated to quit doing drugs as he just lost his twin brother and has lost his parents. # Recent aggressive behaviors, resident of the time admission, patient is much more calm and there is no agitation today. Previous outbursts are likely from baseline personality disorder, -We will continue monitor for drug use in house as needed - However, patient appears to be motivated to quit doing drugs. # Anxiety, present at the time of admission, improved with Ativan # GERD, -will continue Protonix. # PE last , s/p EKOS, discharged with Xarelto - unclear compliance - we will continue Xarelto # HTN - We will continue Isordil - We will continue metoprolol - Continue Cardiac diet Disposition: Patient will likely require 2-3more days with diuresis, very high risks of AMA Exam Vital Signs (Last) Date Time Temp Pulse Resp B/P Pulse Ox O2 Delivery O2 Flow Rate FiO2 09/21/16 10:03 69 09/21/16 09:33 36.3 18 108/91 100 Room Air 09/18/16 06:35 1 Exam General: Patient is calm and relaxed laying on the pullout couch rather than his bed. He is in no apparent distress. HEENT: Head is atraumatic and normocephalic. Eyes: Pupils are equally round and reactive to light and accommodation. Extraocular muscles are intact. Sclera are white, anicteric. Subconjunctival mucosa is pink. Ears and nose are unremarkable. Oropharynx: There is no mucosal lesions, there is no thrush, there is no pharyngitis. Neck: Is supple, there are no nodes, or masses or tenderness. Chest: Is clear to auscultation and percussion. There are no rales, rhonchi, wheezes or rubs. Heart: Rate, rhythm is regular. There is no murmur, rub or gallop. Abdomen: Good bowel sounds are present. Abdomen is soft, nontender, no organomegaly or masses were appreciated. Extremities: Are symmetrical and well perfused. There is no edema, there is no cellulitis, no rash. Neurologic: There are no focal neurological deficits. Cranial nerves II through XII are intact. There are no sensory or motor deficits. Psychiatric: Patients mood is calm and he shows no sign of agitation. Genital: Deferred Rectal: Deferred Test 09/18/16 03:10 09/18/16 03:15 09/21/16 09:35 Urine Color Yellow (YELLOW) Urine Appearance Hazy (CLEAR,HAZY) Urine pH 5.5 (5.0-8.0) Urine Specific [place] 1.030 (1.003-1.035) Urine Protein 30mg/dL (NEG,TRACE) Urine Glucose (UA) Negativemg/dL (NEGATIVE) Urine Ketones Negativemg/dL (NEGATIVE) Urine Occult Blood Negative (NEGATIVE) Urine Nitrite Negative (NEGATIVE) Urine Bilirubin Negative (NEGATIVE) Urine Urobilinogen Normalmg/dL (NORMAL) Urine Leukocyte Esterase Negative (NEGATIVE) Urine RBC 0-2/hpf (0-2) Urine WBC 0-5/hpf (0-5) Urine Epithelial Cells Occasional/hpf (NONE-MOD) Urine Crystals Oxalic acid crystals (NONE Urine Bacteria None/hpf (NONE-FEW) Urine Hyaline Casts None/lpf (NONE) Urine Granular Casts None seen (NONE SEEN) Urine Waxy Casts None seen (NONE SEEN) Urine Red Blood Cell Casts None seen (NONE SEEN) Urine White Blood Cell Casts None seen (NONE SEEN) Urine Mucus Present (None Seen) Urine Trichomonas None seen (NONE SEEN) Urine Yeast None (NONE SEEN) Urinalysis Comment None Urine Culture Reflexed Not indicated Hold Urine Received (Received) Urine Opiates Screen Negative Urine Methadone Screen Negative Urine Barbiturates Screen Negative Urine Amphetamines Screen Positive Urine Benzodiazepines Screen Negative Urine Cocaine Metabolite Screen Negative Urine Cannabinoids Screen Positive Prothrombin Time 14.9sec (8.1-12.5) Prothromb Time International Ratio 1.38ratio Activated Partial Thromboplast Time 38.8sec (22.8-33.0) Troponin T 0.010ug/L (0.0-0.011) Pro-B-Type Natriuretic Peptide 5624pg/mL (0-121) Procalcitonin 0.23ng/mL (0.00-0.08) Hold Ca Top Tube Received (Received) White Blood Count 6.9th/mm3 (3.8-10.1) Red Blood Count 5.81mil/mm3 (4.40-5.80) Hemoglobin 17.1g/dL (13.8-17.2) Hematocrit 50.1% (41.0-50.0) Mean Corpuscular Volume 86.2fL (81-100) Mean Corpuscular Hemoglobin 29.4pg (27.0-35.0) Mean Corpuscular Hemoglobin Concent 34.1% (32.0-37.0) Red Cell Distribution Width 13.4% (12.3-15.4) Platelet Count 178bil/L (150-400) Neutrophils (%) (Auto) 48.7% (40-74) Lymphocytes (%) (Auto) 29.3% (14-46) Monocytes (%) (Auto) 18.8% (4-12) Eosinophils (%) (Auto) 1.6% (0-5) Basophils (%) (Auto) 1.5% (0-3) Sodium Level 134mEq/L (134-144) Potassium Level 4.5mEq/L (3.5-5.2) Chloride Level 98mEq/L (97-108) Carbon Dioxide Level 19mmol/L (18-29) Blood Urea Nitrogen 34mg/dL (6-24) Creatinine 1.76mg/dL (0.76-1.27) Estimat Glomerular Filtration Rate 44mL/min (>59) Glucose Level 96mg/dL (60-99) Calcium Level 9.2mg/dL (8.5-10.1) Phosphorus Level 4.8mg/dL (2.5-4.9) Magnesium Level 2.0mg/dL (1.6-2.6) Total Bilirubin 0.4mg/dL (0.0-1.2) Aspartate Amino Transf (AST/SGOT) 44U/L (0-50) Alanine Aminotransferase (ALT/SGPT) 27U/L (0-44) Alkaline Phosphatase 131U/L (25-150) Total Protein 6.9g/dL (6.4-8.4) Albumin 3.7g/dL (3.4-5.0) Microbiology Results Respiratory virus PCR test was negative MRSA screen was negative Stool was positive for: CRYPTOSPORIDIUM PCR Final 09/21/16-1003 Organism 1 CRYPTOSPORIDIUM CRYPTOSPORIDIUM PCR DETECTED TIME CALLED: 857 DATE CALLED: 09/21/16 FLOOR/DOCTOR: WISAM/YONATAN Farfan CALLED BY: IRINEO RESULTS CALLED TO ORALIA Farfan (INFECTION CONTROL) 09/21/16 @ 0900 IRINEO. ALSO CALLED TO KENNEY [employer] [facility] DEPT. @ 1000 AM. Discharge Medications Discharge Medications Aspirin (Aspirin) 325 Mg Tablet 325 MG PO DAILY (Reported) Bupropion ER (Bupropion ER) 150 Mg Tablet.er 150 MG PO BID (Reported) Furosemide (Furosemide) 40 Mg Tablet 40 MG PO DAILY (Reported) Isosorbide DN (Isosorbide DN) 10 Mg Tablet 10 MG PO BID (Reported) Metoprolol Tartrate (Metoprolol Tartrate) 25 Mg Tablet 25 MG PO BID (Reported) Nicotine 21 mg/24 hr Patch (Nicotine 21 mg/24 hr Patch) 1 Each Patch.td24 1 PATCH TD DAILY (Reported) Omeprazole (Omeprazole) 20 Mg Capsule.dr 20 MG PO DAILY (Reported) Rivaroxaban (Xarelto) 20 Mg Tablet 20 MG PO DAILY Prescribed by: SHAYNE LEGER MD Sertraline HCl (Sertraline) 50 Mg Tablet 50 MG PO DAILY (Reported) Triamterene/HCTZ 37.5-25 mg (Triamterene/HCTZ 37.5-25 mg) 1 Each Tablet 1 TAB PO DAILY (Reported) As needed Lorazepam (Ativan) 0.5 Mg Tablet 0.5 MG PO TID PRN PRN For Anxiety Prescribed by: SHAYNE LEGER MD oxyCODONE-Acetaminophen 5-325 mg (oxyCODONE-Acetaminophen 5-325 mg) 1 Each Tablet 1 TAB PO Q6H PRN PRN For Pain Prescribed by: SHAYNE LEGER MD Followup Plan Disposition: Patient is being discharged home. Discharge Diet: Heart Healthy Discharge Activity: No restrictions (Patient may return to usual activities gradually as tolerated.) Follow-up Provider: [facility] Follow-up with PCP in: 1 week Time spent Time spent on discharging this patient was greater than 35 minutes, over half of which was involved in counseling and coordination of care. Eris Hewitt MD Sep 21, 2016 23:40
== END 2016-09-21 14:36 | disposition home or self-care (01) ==
LOC: SED 02:48 → INTOOBSV 06:33 → OBSVTOIN 06:33 → MPC 06:33
PROVIDERS: ADMIT Hospitalist; ATTEND Internal Medicine
DX: I50.23 Acute on chronic systolic (congestive) heart failure (principal); R06.09 Other forms of dyspnea; F15.10 Other stimulant abuse, uncomplicated; F12.90 Cannabis use, unspecified, uncomplicated; F60.9 Personality disorder, unspecified; I10 Essential (primary) hypertension; K21.9 Gastro-esophageal reflux disease without esophagitis; F17.200 Nicotine dependence, unspecified, uncomplicated; F41.9 Anxiety disorder, unspecified; K52.9 Noninfective gastroenteritis and colitis, unspecified; Z79.82 Long term (current) use of aspirin; Z91.19 Patient's noncompliance with other medical treatment and regimen; Z86.711 Personal history of pulmonary embolism; Z79.01 Long term (current) use of anticoagulants
CPT/HCPCS: 36415; 71020; 71275; 80053; 81000; 82948; 83735; 83880; 84100; 84145; 84484; 85025; 85610; 85730; 87507; 87633; 87641; 93005; 96374; 96375; 96376; 99285; C8929; G0378; G0480; J1940; J2060; J2405; Q9967